=== PATIENT | male | born 1935 | race Caucasian/White ===

== ENCOUNTER → 2016-11-25 | Outpatient (CLI) | payer MEDICARE ==
[~2016-11-25] MED LIST: AMBI5TAB PO; AMLO25TA PO; ASPI325T28 PO; ATOR40TA PO; DEPA250T32 PO; ELIQ2.5T PO; FENO145T PO; FIRS1SOL3 PO; FURO40TA2 PO; HYDR-4267 PO; ISOS60TA2 PO; K-TA10TA2 PO; LIPI20TA PO; MAGN400T5 PO; METO25TA74 PO; METOPROLOL PO; MILKSUS PO; NITR400A3; OMEP40CA2 PO; RANI15TA PO; RANO5TAB PO; SENO8.6T10 PO; TYLE325T5 PO; VITA-114 PO; VITA10002 PO; VITA2000 PO; ZYLO300T4 PO
[2016-11-25 16:48] LABS: MEAN CORPUSCULAR HGB CONC 33.6 g/dl (32.0-36.5); MEAN CORPUSCULAR VOLUME 95.4 fl (80.0-96.0); RED CELL DISTRIBUTION WIDTH 13.5 % (11.5-14.5)
[2016-11-25 17:22] LABS: BANDS 3 % (< 11)
[2016-11-25 17:39] LABS: CALCIUM LEVEL 9.2 MG/DL (8.8-10.2); CREATININE FOR GFR 2.18 MG/DL (0.70-1.30); GLOMERULAR FILTRATION RATE 31.1 (>35); MAGNESIUM LEVEL 2.2 MG/DL (1.8-2.4); POTASSIUM SERUM 4.9 MEQ/L (3.5-5.1)
== END ==
LOC: M WUC 14:38
PROVIDERS: ATTEND Internal Medicine
DX: N18.3 Chronic kidney disease, stage 3 (moderate) (principal)

== ENCOUNTER → 2017-04-27 | Outpatient (CLI) | payer MEDICARE ==
[~2017-04-27] MED LIST changes: +AMLO5TAB2 PO; +ASPI1TAB PO; +CREO12CA PO; +IMOD2CAP PO; +INSUDET SC; +PROBCAP4 PO; +ROCA0.25 PO; +TRAZ100T4 PO
--- NOTE | 2017-04-27 14:48 | ECGEPIP ---
Stationary ECG Study [facility] Test Date: 2017-04-27 Pat Name: FRANCISCO HERNANDEZ Department: Room: - Gender: M [employer]: : 1935 Requested By: Hector Wallace Order Number: [id number] Reading MD: Hector Alejandre Measurements Intervals [place] Rate: 52 P: -3 GA: 224 QRS: 97 QRSD: 158 T: 63 QT: 461 QTc: 432 Interpretive Statements SINUS BRADYCARDIA WITH SINUS ARRHYTHMIA WITH FIRST DEGREE AV BLOCK RIGHT BUNDLE BRANCH BLOCK Nonspecific ST-T wave abnormalities Electronically Signed On 04-27-2017 14:48:25 EDT by Hector Alejandre
--- NOTE | 2017-04-27 14:56 | REP ---
CHEST X-RAY: Two views. HISTORY: Coronary artery disease. Comparison study: May 01, 2015. FINDINGS: The patient is status post prior median sternotomy. The lungs are well inflated and clear. The pleural angles are sharp. Heart is not enlarged. The aorta is somewhat calcific. There are degenerative changes in the thoracic spine. IMPRESSION: Prior median sternotomy. No active cardiopulmonary disease. Signed by Dino Lemon MD 04/27/2017 03:18 P
[2017-04-27 16:02] LABS: CALCIUM LEVEL 9.1 MG/DL (8.8-10.2); CREATININE FOR GFR 2.45 MG/DL (0.70-1.30); GLOMERULAR FILTRATION RATE 27.1 (>35); POTASSIUM SERUM 4.2 MEQ/L (3.5-5.1)
== END ==
LOC: M LAB 14:09
PROVIDERS: ATTEND Ophthalmology
DX: H25.11 Age-related nuclear cataract, right eye (principal)

== ENCOUNTER → 2017-05-11 | Day surgery (SDC) | payer MEDICARE ==
[~2017-05-11] VITALS: Ht 172.7 cm; Wt 98.9 kg
[~2017-05-11] MED LIST changes: +ACETYLCHOLINE OPHTH SOLN 1% 2ML (MIOCHOL-E) As Ordered ONE; +BALANCED SALT IRRIGATION SOL 500ML GLASS BOTTLE (FOR OR EYE COMPOUND) As Ordered ONE; +BALANCED SALT IRRIGATION SOLUTION 500ML BAG (FOR OR EYE MACHINE) As Ordered ONE; +CEFUROXIME 1MG/0.1ML INTRACAMERAL INJ As Ordered ONE; +D5W/0.2% SODIUM CHLORIDE 1,000 ML IV SCH; +DUOVISC (0.50ML VISCOAT/0.55ML PROVISC) OPHTH KIT As Ordered ONE; +LIDOCAINE 0.75%/EPINEPHRINE 0.025% IN BSS 1ML SYR INTRACAMERAL (OR ONLY) As Ordered ONE; +LIDOCAINE 4% INJ 5 ML AMP As Ordered ONE; +MIDAZOLAM INJ 2 MG/2 ML VIAL (J2250) As Ordered ONE; +OFLOXACIN 0.3 % (OCUFLOX) OPTH SOL 5ML OD ONE; +PHENYLEPHRINE 2.5% OPHTH SOL 2ML OD ONE; +POVIDONE-IODINE 5% OPHTH PREP SOL 30ML As Ordered ONE; +PROPARACAINE 0.5% OPHTH SOL 15ML OD ONE; +TROPICAMIDE 1% OPHTH SOLN 2ML OD ONE; +fentaNYL 100 MCG/2 ML INJECTION (J3010) As Ordered ONE
[2017-05-11 12:45] VITALS: BP 165/79
--- NOTE | 2017-05-12 09:10 | RO ---
DATE OF PROCEDURE: 05/11/2017 PREOPERATIVE DIAGNOSIS: Visually significant nuclear sclerotic cataract right eye. POSTOPERATIVE DIAGNOSIS: Visually significant nuclear sclerotic cataract right eye. PROCEDURE: Cataract extraction with use of phacoemulsification, and placement of intraocular lens, AU00T0, 22.5 diopter, right eye. SURGEON: Eric Cristina DO [employer]: ANESTHESIA: Local with monitored anesthesia care (MAC). COMPLICATIONS: None. POSTOPERATIVE CONDITION: Stable. INDICATION FOR SURGERY: Blurred vision right eye affecting patient's activities of daily living. DESCRIPTION OF PROCEDURE: The patient was seen in the preoperative area and properly identified. The correct operative eye was identified and marked. Attention was turned to that eye. The patient received topical antibiotics in the preoperative area. The patient then received topical dilating drops consisting of Tropicamide and Phenylephrine. The patient was then transferred to the operating room. The correct side was re-identified. The patient received topical anesthetics and antibiotics on the surface of the eye. The eye was prepped and draped in a sterile fashion. The upper and lower eyelids were isolated with Tegaderm tape, and the lids were held open with an adjustable speculum. Using a sideport blade, a paracentesis incision was made. Intraocular preservative-free lidocaine was then injected into the anterior chamber. Viscoelastic was then injected into the anterior chamber through the paracentesis. Using a 2.6 mm sharp-tipped keratome, the anterior chamber was entered via a temporal clear corneal incision. A continuous curvilinear capsulorrhexis was created with the aid of a 26g cystotome and utrata forceps. Hydrodissection was performed with balanced salt solution (BSS) on a blunt cannula until the nucleus was freely mobile. The crystalline lens was phacoemulsified and aspirated. Additional cohesive viscoelastic was placed into the capsular bag to deepen it. AU00T0, 22.5 Diopter lens was placed into the capsular bag and confirmed by visualizing the continuous curvilinear capsulorrhexis. Additional irrigation and aspiration was used to remove cortical material and remaining viscoelastic. The clear corneal incision was hydrated with BSS on a blunt cannula. The lens was well positioned. The incisions were then tested for leaks and found to be negative. The eye was then palpated for appropriate pressure and adjusted accordingly with BSS. The eyelid speculum was carefully removed. A shield was then secured over the eye. The patient tolerated the procedure well and was discharged to the recovery unit in a stable condition. SERENE
== END | disposition home or self-care (01) ==
LOC: M SDC 09:08
PROVIDERS: ATTEND Ophthalmology
DX: H25.11 Age-related nuclear cataract, right eye (principal); I25.10 Atherosclerotic heart disease of native coronary artery without angina pectoris; I10 Essential (primary) hypertension; E78.5 Hyperlipidemia, unspecified; E11.9 Type 2 diabetes mellitus without complications; G47.30 Sleep apnea, unspecified; Z79.82 Long term (current) use of aspirin; Z79.899 Other long term (current) drug therapy; Z87.891 Personal history of nicotine dependence
CPT/HCPCS: 66984; J2250; J3010; V2632

== ENCOUNTER 2017-05-26 06:49 | Emergency (ER) | payer MEDICARE ==
[~2017-05-26 06:49] MED LIST changes: -ACETYLCHOLINE OPHTH SOLN 1% 2ML (MIOCHOL-E) As Ordered ONE; -ATOR40TA PO; +ATOR40TA75 PO; -BALANCED SALT IRRIGATION SOL 500ML GLASS BOTTLE (FOR OR EYE COMPOUND) As Ordered ONE; -BALANCED SALT IRRIGATION SOLUTION 500ML BAG (FOR OR EYE MACHINE) As Ordered ONE; -CEFUROXIME 1MG/0.1ML INTRACAMERAL INJ As Ordered ONE; -D5W/0.2% SODIUM CHLORIDE 1,000 ML IV SCH; -DUOVISC (0.50ML VISCOAT/0.55ML PROVISC) OPHTH KIT As Ordered ONE; +HYDR-3911 PO; -HYDR-4267 PO; -LIDOCAINE 0.75%/EPINEPHRINE 0.025% IN BSS 1ML SYR INTRACAMERAL (OR ONLY) As Ordered ONE; -LIDOCAINE 4% INJ 5 ML AMP As Ordered ONE; +METO1TAB32 PO; -METO25TA74 PO; -MIDAZOLAM INJ 2 MG/2 ML VIAL (J2250) As Ordered ONE; -OFLOXACIN 0.3 % (OCUFLOX) OPTH SOL 5ML OD ONE; -PHENYLEPHRINE 2.5% OPHTH SOL 2ML OD ONE; -POVIDONE-IODINE 5% OPHTH PREP SOL 30ML As Ordered ONE; -PROPARACAINE 0.5% OPHTH SOL 15ML OD ONE; +TRAZ-136 PO; -TRAZ100T4 PO; -TROPICAMIDE 1% OPHTH SOLN 2ML OD ONE; -fentaNYL 100 MCG/2 ML INJECTION (J3010) As Ordered ONE
[2017-05-26] MEDS ORDERED: LEXA1TAB PO (07:00)
[2017-05-26] MEDS ORDERED: ACETAMINOPH W/CODEINE #3 TAB UD PO ONE (07:15)
[2017-05-26] MEDS ORDERED: ACET30TAB PO (08:19)
[2017-05-26 08:28] VITALS: BP 136/84
--- NOTE | 2017-05-26 08:34 | REP ---
Right shoulder series: Three views. History: Right shoulder pain. No known injury. Findings: There is some osteoarthritic hypertrophy at the acromioclavicular joint. Subcortical cyst formation is seen in the superolateral humeral head. These findings may imply some degree of impingement. There is also some glenohumeral spurring which is mild. No acute bony abnormality is seen. No subluxation or fracture is seen. Median sternotomy wires are noted. Impression: Degenerative changes. No acute bony abnormality. Signed by Dino Lemon MD 05/26/2017 11:33 A
[2017-08-15] MEDS ORDERED: CREO12CA PO (12:35)
== END 2017-05-26 08:31 | disposition home or self-care (01) ==
LOC: M ED 06:49
DX: S46.811A Strain of other muscles, fascia and tendons at shoulder and upper arm level, right arm, initial encounter (principal); X58.XXXA Exposure to other specified factors, initial encounter; Y92.9 Unspecified place or not applicable; Y93.9 Activity, unspecified; Y99.9 Unspecified external cause status; E11.9 Type 2 diabetes mellitus without complications; Z95.1 Presence of aortocoronary bypass graft; Z87.891 Personal history of nicotine dependence; Z79.82 Long term (current) use of aspirin; Z79.4 Long term (current) use of insulin; Z79.899 Other long term (current) drug therapy; Z88.8 Allergy status to other drugs, medicaments and biological substances

== ENCOUNTER → 2017-07-20 | Outpatient (CLI) | payer MEDICARE ==
[~2017-07-20] MED LIST changes: +ACET30TAB PO; +LEXA1TAB PO
--- NOTE | 2017-07-20 14:37 | REP ---
Chest two views HISTORY: Coronary artery disease Comparison: 04/27/2017 The lungs are clear. The heart is normal in size. The pulmonary vasculature is normal in appearance. Degenerative change is present in the thoracic spine. IMPRESSION: No acute disease. Signed by Jerel Braga MD 07/20/2017 02:28 P
== END ==
LOC: M RAD 14:07
PROVIDERS: ATTEND Ophthalmology
DX: I25.10 Atherosclerotic heart disease of native coronary artery without angina pectoris (principal)

== ENCOUNTER 2017-08-18 06:45 | Outpatient (CLI) | payer MEDICARE ==
[~2017-08-18] VITALS: Ht 172.7 cm; Wt 99.8 kg
[2017-08-18] MEDS ORDERED: NS 1,000 ML IV SCH (07:00)
[2017-08-18] MEDS ORDERED: PROPOFOL 200 MG/20 ML VIAL As Ordered ONE ×4 (07:43→08:14)
--- NOTE | 2017-08-18 08:40 | ROOR ---
Patient Name: Andres Bradley Procedure Date: 08/18/2017 7:34 AM Date of : 1935 Age: 81 Room: [facility] Gender: Male Note Status: Finalized Procedure: Colonoscopy Indications: High risk colon cancer surveillance: Personal history of colonic polyps, Last colonoscopy: April 2014, 2 previously incomplete colonoscopies due to redundancy Providers: Hector ESPINO MD Referring MD: PONCHO VAUGHAN MD Requesting Provider: Medicines: Monitored Anesthesia Care Complications: No immediate complications. Procedure: Pre-Anesthesia Assessment: - The heart rate, respiratory rate, oxygen saturations, blood pressure, adequacy of pulmonary ventilation, and response to care were monitored throughout the procedure. The Colonoscope was introduced through the anus and advanced to the cecum, identified by appendiceal orifice and ileocecal valve. The colonoscopy was technically difficult and complex due to a redundant colon and significant looping. Successful completion of the procedure was aided by changing the patient's position, using manual pressure, withdrawing and reinserting the scope, withdrawing the scope and replacing with the pediatric colonoscope and withdrawing the scope and replacing with the 'babyscope'. The patient tolerated the procedure well. The quality of the bowel preparation was good. Findings: The perianal and digital rectal examinations were normal. Four sessile polyps were found in the transverse colon and hepatic flexure. The polyps were 4 to 8 mm in size. These polyps were removed with a hot snare. Resection and retrieval were complete. Multiple diverticula were found in the sigmoid colon. The colon (entire examined portion) was significantly redundant. Advancing the scope required changing the patient's position. Impression: -(Exam: Complete, Prep: Good or Excellent.) - Four 4 to 8 mm polyps in the transverse colon and at the hepatic flexure, removed with a hot snare. Resected and retrieved. - Moderate diverticulosis in the sigmoid colon. - Redundant colon. Recommendation: - Repeat colonoscopy in 3 years for surveillance. - Telephone endoscopist for pathology results in 2 weeks. Hector Espino MD Hector ESPINO MD 08/18/2017 8:40:09 AM This report has been signed electronically. Number of Addenda: 0 Note Initiated On: 08/18/2017 7:34 AM Estimated Blood Loss: Estimated blood loss: none.
[2017-08-18 09:16] VITALS: BP 179/97
== END 2017-08-18 09:18 | disposition home or self-care (01) ==
LOC: M OPP 06:45
PROVIDERS: ATTEND Internal Medicine Gastroenterology
DX: Z12.11 Encounter for screening for malignant neoplasm of colon (principal); Z86.010 Personal history of colon polyps; Q43.8 Other specified congenital malformations of intestine; D12.3 Benign neoplasm of transverse colon; K57.30 Diverticulosis of large intestine without perforation or abscess without bleeding; I48.91 Unspecified atrial fibrillation; I25.119 Atherosclerotic heart disease of native coronary artery with unspecified angina pectoris; I12.9 Hypertensive chronic kidney disease with stage 1 through stage 4 chronic kidney disease, or unspecified chronic kidney disease; E78.5 Hyperlipidemia, unspecified; Z95.1 Presence of aortocoronary bypass graft; Z86.718 Personal history of other venous thrombosis and embolism; E11.9 Type 2 diabetes mellitus without complications; M10.9 Gout, unspecified; K57.92 Diverticulitis of intestine, part unspecified, without perforation or abscess without bleeding; R12 Heartburn; K21.9 Gastro-esophageal reflux disease without esophagitis; I71.4 Abdominal aortic aneurysm, without rupture; G47.30 Sleep apnea, unspecified; R06.83 Snoring; N18.9 Chronic kidney disease, unspecified; Q61.3 Polycystic kidney, unspecified; R01.1 Cardiac murmur, unspecified; Z87.891 Personal history of nicotine dependence; Z88.8 Allergy status to other drugs, medicaments and biological substances; Z79.82 Long term (current) use of aspirin; Z79.899 Other long term (current) drug therapy; Z79.4 Long term (current) use of insulin; Z80.0 Family history of malignant neoplasm of digestive organs; Z80.6 Family history of leukemia

== ENCOUNTER 2017-12-14 11:49 | Emergency (ER) | payer MEDICARE | END 2017-12-14 14:04 | disposition home or self-care (01) | LOC: M ED 11:49 | DX: S00.93XA Contusion of unspecified part of head, initial encounter (principal); W01.198A Fall on same level from slipping, tripping and stumbling with subsequent striking against other object, initial encounter; Y92.098 Other place in other non-institutional residence as the place of occurrence of the external cause; I10 Essential (primary) hypertension; E11.9 Type 2 diabetes mellitus without complications; E78.9 Disorder of lipoprotein metabolism, unspecified; I25.10 Atherosclerotic heart disease of native coronary artery without angina pectoris; Z95.1 Presence of aortocoronary bypass graft; K21.9 Gastro-esophageal reflux disease without esophagitis; Z86.79 Personal history of other diseases of the circulatory system; Z88.8 Allergy status to other drugs, medicaments and biological substances; Z79.899 Other long term (current) drug therapy; Z79.82 Long term (current) use of aspirin; Z79.4 Long term (current) use of insulin | CPT/HCPCS: 70450 ==

== ENCOUNTER 2019-07-01 16:31 | Emergency (ER) | payer MEDICARE ==
[~2019-07-01] VITALS: Ht 172.7 cm; Wt 90.9 kg
[~2019-07-01 16:31] MED LIST changes: +ACET-716 PO; -ACET30TAB PO; -AMLO5TAB2 PO; +AMLO5TAB6 PO; +ASPI-222 PO; -ASPI1TAB PO; -ASPI325T28 PO; +ASPI81TA26 PO; +CYAN100049 PO; -FENO145T PO; +FENO145T13 PO; -FIRS1SOL3 PO; +FIRS50SO PO; +MILK120011 PO; -MILKSUS PO; -NITR400A3; +RANO500T7 PO; -RANO5TAB PO; -TRAZ-136 PO; +TRAZ-163 PO; -VITA10002 PO; -ZYLO300T4 PO; +ZYLO300T6 PO; +[UNRECOGNIZED DRUG - CODE]
[2019-07-01 17:48] LABS: BASO % 0.2 % (0.0-1.0); HEMATOCRIT 42.2 % (42.0-52.0); HEMOGLOBIN 14.6 g/dl (13.5-17.5); LYMPH # 1.5 10^3/uL (1.5-4.5); LYMPH % 11.4 % (24.0-44.0); MEAN CORPUSCULAR HEMOGLOBIN 30.3 pg (27.0-33.0); MEAN CORPUSCULAR HGB CONC 34.6 g/dl (32.0-36.5); MEAN CORPUSCULAR VOLUME 87.6 fl (80.0-96.0); MONO # 0.7 10^3/uL (0.0-0.8); MONO % 5.7 % (0.0-5.0); NEUTROPHILS # 10.4 10^3/uL (1.8-7.7); NEUTROPHILS % 81.9 % (36.0-66.0); PLATELET COUNT, AUTOMATED 165 10^3/uL (150-450); RED BLOOD COUNT 4.82 10^6/uL (4.30-6.10); WHITE BLOOD COUNT 12.7 10^3/uL (4.0-10.0)
[2019-07-01 18:13] LABS: ALBUMIN 4.1 GM/DL (3.2-5.2); BILIRUBIN,DIRECT 0.2 MG/DL (0.0-0.2); BILIRUBIN,TOTAL 0.6 MG/DL (0.2-1.0); CALCIUM LEVEL 9.3 MG/DL (8.8-10.2); CREATININE FOR GFR 2.46 MG/DL (0.70-1.30); GLOMERULAR FILTRATION RATE 26.9 (>35); POTASSIUM SERUM 3.8 MEQ/L (3.5-5.1); TOTAL PROTEIN 7.3 GM/DL (6.4-8.2)
[2019-07-01] MEDS ORDERED: ULOR80TA PO (18:41)
[2019-07-01] MEDS ORDERED: ZOLP10TA2 (18:41)
[2019-07-01] MEDS ORDERED: ONDANSETRON 4MG/2ML VIAL (J2405) IV ONE (18:45)
[2019-07-01] MEDS ORDERED: MORPHINE 2 MG/ML 1ML SYRINGE (J2270) IV PRN (18:45)
[2019-07-01] MEDS: GASTROGRAFIN SOLUTION 30ML PO SCH ×2 (18:49→19:23)
--- NOTE | 2019-07-01 21:59 | REPVR ---
EXAM: CT Abdomen and Pelvis Without Contrast EXAM DATE/TIME: 07/01/19 (8:18pm) CLINICAL HISTORY: 83 year old male with generalized abdominal pain. Additional info: Diverticulitis. TECHNIQUE: Imaging protocol: Axial computed tomography images of the abdomen and pelvis without contrast. Coronal and sagittal reformatted images were created and reviewed. Radiation optimization: All CT scans at this facility use at least one of these dose optimization techniques: automated exposure control; mA and/or kV adjustment per patient size (includes targeted exams where dose is matched to clinical indication); or iterative reconstruction. COMPARISON: CT ABDOMEN PELVIS of 03/06/15 FINDINGS: Lower lung dent: Coronary artery stent(s) and/or calcifications. No pleural effusions. Liver: No solid mass. A few small hepatic cysts are again seen (unchanged). Small stable calcification again seen posteriorly in the inferior right hepatic lobe. Gallbladder and bile ducts: Normal. No calcified stones. No ductal dilatation. Pancreas: Normal. No ductal dilatation. Spleen: Normal. No splenomegaly. Adrenals: Normal. No mass. Kidneys and ureters: No hydronephrosis. Advanced polycystic kidney disease changes again seen. Numerous bilateral renal cysts are present. Some of the cysts are hyperdense, compatible with benign, proteinaceous cysts / hemorrhagic cysts. Stomach and bowel: No bowel obstruction. No mucosal thickening. Diverticulosis changes of the distal left colon and sigmoid are again noted. Appendix: No evidence of appendicitis. Intraperitoneal space: Normal. No free air. No significant fluid collection. Vasculature: Atherosclerotic abdominal aorta and iliac arteries. No abdominal aortic aneurysm. Lymph nodes: Normal. No enlarged lymph nodes. Bladder: Distended urinary bladder. No stones nor mass. Reproductive: Moderately enlarged prostate gland with coarse calcifications (unchanged). Bones/joints: No acute fracture nor dislocation. Soft tissues: Unremarkable. IMPRESSION: No acute findings. Advanced polycystic kidney disease again appreciated. In general, similar findings were noted in February 2015. Electronically signed by: Antonette Hernandez On 07/01/2019 21:58:57 PM
[2019-07-01 22:35] VITALS: BP 123/75
== END 2019-07-01 22:36 | disposition home or self-care (01) ==
LOC: EDBD 16:31 → M ED 16:31
DX: K31.84 Gastroparesis (principal); I48.91 Unspecified atrial fibrillation; I25.10 Atherosclerotic heart disease of native coronary artery without angina pectoris; E11.9 Type 2 diabetes mellitus without complications; I10 Essential (primary) hypertension; E78.5 Hyperlipidemia, unspecified; M10.9 Gout, unspecified; Z95.5 Presence of coronary angioplasty implant and graft; Q61.2 Polycystic kidney, adult type
CPT/HCPCS: 74176; 80048; 80076; 83605; 83690; 85025; 93041; 96374; 96375; 99285; J2270; J2405; Q9963

== ENCOUNTER 2019-07-27 17:25 | Emergency (ER) | payer MEDICARE ==
[~2019-07-27] VITALS: Ht 180.3 cm; Wt 92.3 kg
[~2019-07-27 17:25] MED LIST changes: -ASPI-222 PO; +ASPI-527 PO; -FENO145T13 PO; +FENO145T7 PO; -OMEP40CA2 PO; +OMEP40CA97 PO; -TRAZ-163 PO; +TRAZ-257 PO; +ULOR80TA PO; +ZOLP10TA2
--- NOTE | 2019-07-27 17:46 | REPVR ---
EXAM: CT Head Without Contrast EXAM DATE/TIME: 07/27/2019 5:36 PM CLINICAL HISTORY: 83 years old, male; Injury or trauma; Fall; Initial encounter; Blunt trauma (contusions or hematomas); Consciousness not specified TECHNIQUE: Imaging protocol: Computed tomography of the head without contrast. Radiation optimization: All CT scans at this facility use at least one of these dose optimization techniques: automated exposure control; mA and/or kV adjustment per patient size (includes targeted exams where dose is matched to clinical indication); or iterative reconstruction. COMPARISON: CT Head without contrast 12/14/2017 12:39 PM FINDINGS: Brain: There is volume loss. Images 19-23 demonstrate bilateral small amounts of subarachnoid hemorrhage within frontal sulci. No parenchymal hemorrhage. No extra-axial hematoma. There is white matter lucency indicating chronic microvascular disease. No acute infarct. Ventricles: Normal. No ventriculomegaly. Bones/joints: There are bifrontal osito holes. No acute fracture. Sinuses: Visualized sinuses are unremarkable. No fluid levels. Mastoid air cells: Visualized mastoid air cells are well aerated. Soft tissues: There is left frontal soft tissue swelling. IMPRESSION: 1. Small amount of subarachnoid hemorrhage within frontal sulci bilaterally. 2. Chronic microvascular disease. No acute infarct. Electronically signed by: Richard Smith On 07/27/2019 17:46:38 PM
--- NOTE | 2019-07-27 17:50 | REPVR ---
EXAM: CT Maxillofacial Without Contrast EXAM DATE/TIME: 07/27/2019 5:36 PM CLINICAL HISTORY: 83 years old, male; Injury or trauma; Fall; Initial encounter; Blunt trauma (contusions or hematomas); Forehead and ocular (eye or eyeball); Left TECHNIQUE: Imaging protocol: Computed tomography images of the face without contrast. Radiation optimization: All CT scans at this facility use at least one of these dose optimization techniques: automated exposure control; mA and/or kV adjustment per patient size (includes targeted exams where dose is matched to clinical indication); or iterative reconstruction. COMPARISON: No relevant prior studies available. FINDINGS: Orbits: No evidence of intraorbital hemorrhageor ocular injury. Status post lens extraction on the right. Sinuses: Mild because of thickening in the right ethmoids. No air-fluid levels. Bones/joints: There is no fracture of the orbits or zygomatic arches. There is no fracture of the sinuses. There is no fracture of the maxilla or mandible. Soft tissues: There is left frontal and periorbital soft tissue swelling. IMPRESSION: No evidence of facial bone fracture. Electronically signed by: Richard Smith On 07/27/2019 17:49:49 PM
--- NOTE | 2019-07-27 17:56 | REPVR ---
EXAM: CT Cervical Spine Without Contrast EXAM DATE/TIME: 07/27/2019 5:36 PM CLINICAL HISTORY: 83 years old, male; Injury or trauma; Fall; Initial encounter; Blunt trauma TECHNIQUE: Imaging protocol: Computed tomography images of the cervical spine without contrast. Radiation optimization: All CT scans at this facility use at least one of these dose optimization techniques: automated exposure control; mA and/or kV adjustment per patient size (includes targeted exams where dose is matched to clinical indication); or iterative reconstruction. COMPARISON: No relevant prior studies available. FINDINGS: Vertebrae: There is no fracture. Vertebral alignment is normal. Discs/Spinal canal/Neural foramina: There is spondylosis and disc space narrowing from C3-C4 to C7-T1. There is ankylosis across C7-T1 anteriorly and posteriorly. There is no central stenosis in the cervical spine. There is mild foraminal stenosis at several levels. . Soft tissues: Unremarkable. Lungs: Lung apices are normal. IMPRESSION: No fracture. Electronically signed by: Richard Smith On 07/27/2019 17:56:34 PM
[2019-07-27] MEDS ORDERED: LABETALOL HCL 100 MG/20 ML VIAL IV STA (18:04)
[2019-07-27 18:08] VITALS: BP 187/87
[2019-07-27] MEDS ORDERED: ADACEL/BOOSTRIX VACCINE (DIPHTH/PERTUSS/ACELL/TETANUS)0.5ML SYR (90715) IM ONE (18:15)
[2019-07-27 18:19] LABS: BASO % 0.4 % (0.0-1.0); EOS # 0.1 10^3/uL (0.0-0.5); EOS % 1.6 % (0.0-3.0); HEMATOCRIT 38.5 % (42.0-52.0); HEMOGLOBIN 13.1 g/dl (13.5-17.5); LYMPH # 1.5 10^3/uL (1.5-5.0); LYMPH % 18.5 % (24.0-44.0); MEAN CORPUSCULAR HEMOGLOBIN 30.4 pg (27.0-33.0); MEAN CORPUSCULAR VOLUME 89.3 fl (80.0-96.0); MONO # 0.7 10^3/uL (0.0-0.8); MONO % 8.5 % (0.0-5.0); NEUTROPHILS # 5.6 10^3/uL (1.5-8.5); NEUTROPHILS % 70.5 % (36.0-66.0); PLATELET COUNT, AUTOMATED 155 10^3/uL (150-450); RED BLOOD COUNT 4.31 10^6/uL (4.30-6.10)
[2019-07-27 18:23] LABS: INR 1.08; PROTHROMBIN TIME 13.7 SECONDS (11.8-14.0)
[2019-07-27 18:24] LABS: PARTIAL THROMBOPLASTIN TIME 37.2 SECONDS (25.0-38.4)
[2019-07-27 18:38] LABS: ALBUMIN 3.4 GM/DL (3.2-5.2); BILIRUBIN,DIRECT 0.2 MG/DL (0.0-0.2); BILIRUBIN,TOTAL 0.9 MG/DL (0.2-1.0); CALCIUM LEVEL 8.6 MG/DL (8.8-10.2); CK-MB VALUE MASS 2.5 NG/ML (<3.6); CREATININE FOR GFR 2.41 MG/DL (0.70-1.30); FREE T4 0.81 NG/DL (0.76-1.46); GLOMERULAR FILTRATION RATE 27.5 (>35); MB/CK RELATIVE INDEX 2.55 (< OR =4); POTASSIUM SERUM 3.9 MEQ/L (3.5-5.1); THYROID STIMULATING HORMONE 8.46 uIU/ML (0.358-3.740); TOTAL PROTEIN 6.6 GM/DL (6.4-8.2); TROPONIN I 0.06 NG/ML (< 0.10)
[2019-07-27 18:41] VITALS: BP 168/68
[2019-07-27] MEDS ORDERED: MORPHINE 4 MG/ML 1ML VIAL/SYRINGE (J2270) IV ONE (18:45)
--- NOTE | 2019-07-27 18:55 | REP ---
Clinical: Trauma . Comparison: 07/20/2017 . Findings: The mediastinum and cardiac silhouette are stable and within normal limits for portable technique. Evidence of prior sternotomy and CABG noted. The lung dent demonstrate chronic interstitial changes without acute consolidation, effusion, or pneumothorax. Skeletal structures are intact. Impression: No acute cardiopulmonary process appreciated. Electronically Signed by Doe Burks MD 07/27/2019 06:46 P
--- NOTE | 2019-07-28 20:30 | ECGEPIP ---
[facility] - ED Test Date: 2019-07-27 Pat Name: FRANCISCO HERNANDEZ Department: Room: - Gender: Male [employer] Advisor: ksenia : 1935 Requested By: NASH Zheng Order Number: [id number] Reading MD: Rachel Oliveira Measurements Intervals [place] Rate: 64 P: 57 PA: 198 QRS: 113 QRSD: 144 T: 58 QT: 449 QTc: 464 Interpretive Statements SINUS RHYTHM RIGHT BUNDLE BRANCH BLOCK AND POSSIBLE RIGHT VENTRICULAR HYPERTROPHY LEFT POSTERIOR FASCICULAR BLOCK Electronically Signed on 07-28-2019 20:30:07 EDT by Rachel Oliveira
== END 2019-07-27 18:45 | disposition short-term general hospital (02) ==
LOC: EDBD 17:25 → M ED 17:25
DX: S06.6X0A Traumatic subarachnoid hemorrhage without loss of consciousness, initial encounter (principal); S00.83XA Contusion of other part of head, initial encounter; S00.81XA Abrasion of other part of head, initial encounter; W01.198A Fall on same level from slipping, tripping and stumbling with subsequent striking against other object, initial encounter; Y92.59 Other trade areas as the place of occurrence of the external cause; Y93.01 Activity, walking, marching and hiking; Y99.8 Other external cause status; I48.91 Unspecified atrial fibrillation; I11.9 Hypertensive heart disease without heart failure; E78.9 Disorder of lipoprotein metabolism, unspecified; K21.9 Gastro-esophageal reflux disease without esophagitis; M10.9 Gout, unspecified; Z86.718 Personal history of other venous thrombosis and embolism; Z95.1 Presence of aortocoronary bypass graft; Z87.891 Personal history of nicotine dependence; Z88.8 Allergy status to other drugs, medicaments and biological substances; Z79.899 Other long term (current) drug therapy; Z79.82 Long term (current) use of aspirin; Z79.4 Long term (current) use of insulin; Z23 Encounter for immunization
CPT/HCPCS: 70450; 70486; 71045; 72125; 80048; 80076; 82550; 82553; 84439; 84443; 84484; 85025; 85610; 85730; 90471; 90715; 93005; 93041; 94760; 96374; 96375; 99285; J2270